=== PATIENT | male | born 2000 | race Caucasian/White ===

== ENCOUNTER 2021-01-22 20:16 | Emergency (ER) | payer OTHER ==
[~2021-01-22] VITALS: Ht 182.9 cm; Wt 63.6 kg
[2021-01-22 20:37] VITALS: BP 151/104; Ht 182.9 cm; Wt 63.6 kg
[2021-01-22] MEDS ORDERED: METHOCARBAMOL500 MG PO (22:37)
== END 2021-01-22 22:52 | disposition home or self-care (01) ==
LOC: D.ER 20:16
DX: S46.011A Strain of muscle(s) and tendon(s) of the rotator cuff of right shoulder, initial encounter (principal); X50.9XXA Other and unspecified overexertion or strenuous movements or postures, initial encounter; Y93.9 Activity, unspecified; Y92.9 Unspecified place or not applicable